=== PATIENT | female | born 1960 | race Caucasian/White ===

== ENCOUNTER → 2019-03-29 | Outpatient (CLI) | payer OTHER ==
[~2019-03-29] MED LIST: HCTZ; LOTREL; TEGRETOL
--- NOTE | 2019-03-29 11:20 | Diagnostic Imaging Report ---
Thyroid ultrasound History: Thyroid nodules Comparison: None Findings: The thyroid echotexture is mildly heterogeneous. Vascularity is normal. The right lobe measures 4.3 x 1.7 x 1.8 cm. The left lobe measures 4.7 x 0.9 x 1.5 cm. The isthmus measures 0.3 cm. Nodules (measurements are AP, transverse, craniocaudal): Right Lobe: 2.0 x 1.3 x 1.3 cm mid pole mixed cystic and solid nodule (1 point) is hypoechoic (2 points), wider than tall, well-circumscribed, and without calcifications. Mild associated vascularity. Left Lobe: 0.3 x 0.3 x 0.3 cm well circumscribed lower pole hypoechoic (2 points) solid (2 points) nodule with internal punctate echogenic focus (3 points). Isthmus: No cystic mass or discrete solid nodule identified. Lymph Nodes: No cervical lymph nodes are identified. Parathyroids: Not visualized. IMPRESSION: Right 2.0cm (TI-RADS 3) and left 0.3cm (TI-RADS 5) nodules as above. RECOMMENDATIONS: Follow-up thyroid ultrasound at 1, 3, and 5 years. ACR glossary of thyroid rads TI-RADS 1: No focal lesion. TI-RADS 2: Not suspicious. TI-RADS 3: Mildly suspicious (recommend FNA is greater than or equal to 2.5 cm; follow-up at 1, 3, and 5 years if greater than or equal to 1.5 cm) TI-RADS 4: Moderately Suspicious (recommend FNA is greater than or equal to 1.5 cm; follow-up at 1, 2, 3, and 5 years) TI-RADS 5: Highly suspicious (recommend FNA is greater than or equal to 10 mm) TI-RADS 6: Biopsy-proven malignancy Signed by: Jaciel Olea MD on 03/29/2019 11:16 AM
== END ==
LOC: MAMMO 09:13
PROVIDERS: ATTEND Family Medicine
DX: Z12.31 Encounter for screening mammogram for malignant neoplasm of breast (principal); E04.1 Nontoxic single thyroid nodule
CPT/HCPCS: 76536; 77067

== ENCOUNTER → 2020-02-19 | Outpatient (CLI) | payer OTHER ==
--- NOTE | 2020-02-19 14:03 | Diagnostic Imaging Report ---
Thyroid ultrasound CPT code: 64997 History: Multinodular thyroid Comparison: Thyroid ultrasound of 03/29/2019 Findings: The thyroid echotexture is normal. Vascularity is normal. The right lobe measures 5.0 x 2.0 x 2.0 cm. The left lobe measures 4.6 x 1.3 x 1.5 cm. The isthmus measures 0.2 cm. Nodules (measurements are AP, transverse, craniocaudal): Right Lobe: 1.7 x 1.1 x 1.2cm mid pole mixed cystic and solid nodule (1 point) is hypoechoic (2 points), wider than tall, well-circumscribed, and without calcifications. Mild associated vascularity. This nodule is unchanged and previously measured 2.0 x 1.3 x 1.3cm. New 1.7 x 1.1 x 1.2cm lower pole solid (2 points) hypoechoic (2 points), wider than tall, circumscribed nodule without calcifications or vascularity. Left Lobe: 0.6 x 0.3 x 0.5 cm well circumscribed lower pole hypoechoic (2 points) solid (2 points) nodule with internal punctate echogenic focus (3 points). Isthmus: No cystic mass or discrete solid nodule identified. Lymph Nodes: No cervical lymph nodes are identified. Parathyroids: Not visualized. IMPRESSION: Right midpole 1.7cm (TI-RADS 3) nodule appears unchanged. New right lower pole 1.7cm (TIRADS 3) nodule. Follow up as per ACR guidelines below. Increase in size of left lower lobe 0.6cm (TI-RADS 5) nodule. Attention on follow-up recommended. If this nodule exceeds 1cm on subsequent imaging, FNA would be indicated. ACR glossary of thyroid rads TI-RADS 1: No focal lesion. TI-RADS 2: Not suspicious. TI-RADS 3: Mildly suspicious (recommend FNA is greater than or equal to 2.5 cm; follow-up at 1, 3, and 5 years if greater than or equal to 1.5 cm) TI-RADS 4: Moderately Suspicious (recommend FNA is greater than or equal to 1.5 cm; follow-up at 1, 2, 3, and 5 years) TI-RADS 5: Highly suspicious (recommend FNA is greater than or equal to 10 mm) TI-RADS 6: Biopsy-proven malignancy Signed by: Jaciel Olea MD on 02/19/2020 1:59 PM
== END ==
LOC: US 12:14
PROVIDERS: ATTEND Internal Medicine Endocrinology, Diabetes & Metabolism
DX: E04.2 Nontoxic multinodular goiter (principal)
CPT/HCPCS: 76536

== ENCOUNTER → 2021-02-05 | Outpatient (CLI) | payer OTHER | LOC: MAMMO 09:53 | PROVIDERS: ATTEND Family Medicine | DX: Z12.31 Encounter for screening mammogram for malignant neoplasm of breast (principal) | CPT/HCPCS: 77067 ==

== ENCOUNTER → 2022-04-15 | Outpatient (CLI) | payer OTHER | LOC: MAMMO 12:36 | PROVIDERS: ATTEND Family Medicine | DX: Z12.31 Encounter for screening mammogram for malignant neoplasm of breast (principal); Z13.820 Encounter for screening for osteoporosis | CPT/HCPCS: 77067; 77080 ==